=== PATIENT | female | born 1980 | race Hispanic/Latino ===

== ENCOUNTER 2019-02-01 12:54 | Emergency (ER) | payer SELFPAY ==
[~2019-02-01] VITALS: Ht 172.7 cm; Wt 91.0 kg
[2019-02-01 13:30] VITALS: BP 112/74
== END 2019-02-01 13:30 | disposition left against medical advice (07) | DRG 605 ==
LOC: ED 12:54
DX: S90.212A Contusion of left great toe with damage to nail, initial encounter (principal); R22.42 Localized swelling, mass and lump, left lower limb; Z91.19 Patient's noncompliance with other medical treatment and regimen; W22.8XXA Striking against or struck by other objects, initial encounter; Y92.414 Local residential or business street as the place of occurrence of the external cause

== ENCOUNTER 2022-04-18 14:27 | Emergency (ER) | payer SELFPAY ==
[~2022-04-18] VITALS: Ht 172.7 cm; Wt 90.0 kg
[2022-04-18] MEDS ORDERED: LORTAB5 PO (16:37)
[2022-04-18 16:49] VITALS: BP 123/66
== END 2022-04-18 16:56 | disposition home or self-care (01) | DRG 605 ==
LOC: ED 14:27
DX: S90.32XA Contusion of left foot, initial encounter (principal); E03.9 Hypothyroidism, unspecified; V09.20XA Pedestrian injured in traffic accident involving unspecified motor vehicles, initial encounter; Y93.89 Activity, other specified; Y92.210 Daycare center as the place of occurrence of the external cause; Y99.0 Civilian activity done for income or pay